=== PATIENT | male | born 1975 | race Caucasian/White ===

== ENCOUNTER 2024-07-12 10:57 | Emergency (ER) | payer OTHER, SELFPAY ==
[2024-07-12 11:05] VITALS: BP 155/108; PULSE 100; RESP 16; TEMP 36.9; O2SAT 100
--- NOTE | 2024-07-12 11:08 | ECG_ITS ---
Test Date: 2024-07-12 11:10:05 Measurements Intervals [place] Rate: 99 P: 9 [place]: 139 QRS: 29 QRSD: 95 T: 1 QT: 313 QTc: 403 Interpretive Statements SINUS RHYTHM WITH SINUS ARRHYTHMIA No previous ECG available for comparison Electronically Signed On 07-12-2024 15:25:56 CDT by Vandana Daniel M.D.
--- NOTE | 2024-07-12 11:32 | ED.ARRPALP ---
HPI - Arrhythmia/Palpitations General Chief Complaint: Arrhythmia/Palpitations Stated Complaint: palpitations, elevated HR, BP Time Seen by Provider: 07/12/24 11:04 Source: patient Mode of arrival: ambulatory Limitations: no limitations History of Present Illness HPI narrative: This is a 48-year-old male who presents to the ED for chief complaint of palpitations onset today. Patient reports he works from home and noticed that his heart beating really fast while sitting at his computer. He reports that he became a little more aware of his racing heartbeat and it seemed to get worse and worse for a few seconds. States that it started to go away but he called EMS to get checked out. States that he refuse transport after they did an EKG but decided he wanted to come to the ER for further evaluation. Endorses some associated lightheadedness. Denies associated chest pain, shortness of breath, nausea, vomiting, syncope, diaphoresis. Also concerned over elevated blood pressure. Denies vision change, numbness, weakness. No past medical history. States that he has been going through a lot of stress recently with a job change and a co-worker recently from heart problems Related Data Allergies Allergy/AdvReac Type Severity Reaction Status Date / Time Penicillins Allergy Unknown Skin Verified 07/12/24 10:59 Reaction Review of Systems Review of Systems: All systems as dictated in HPI Exam Narrative: GENERAL: Well-appearing, well-nourished, and in no acute distress. HEAD: Normocephalic, atraumatic. EYES: PERRLA and EOMI. ENT: Nares clear, no rhinorrhea or epistaxis. Mucous membranes moist. Oropharynx without tonsillar hypertrophy exudate or other lesions. NECK: Supple. No adenopathy or masses. CHEST: No respiratory distress. Clear to auscultation. No wheezes rales or rhonchi HEART: Regular rate and rhythm. No murmur heard. Normal peripheral pulses. ABDOMEN: Soft, nontender, nondistended, normal active bowel sounds. MSK: Normal range of motion. No edema. SKIN: Warm, dry, no rash. NEURO: Alert and oriented x4. No focal deficits. PSYCH: Normal mood and affect. Course Vital Signs Vital signs: Vital Signs Temperature 98.5 F 07/12/24 11:05 Pulse Rate 100 07/12/24 11:05 Respiratory Rate 16 07/12/24 11:05 Blood Pressure 155/108 H 07/12/24 11:05 Pulse Oximetry 100 07/12/24 11:05 Temperature 98.5 F 07/12/24 11:05 Pulse Rate 100 07/12/24 11:05 Respiratory Rate 16 07/12/24 11:05 Blood Pressure 155/108 H 07/12/24 11:05 Pulse Oximetry 100 07/12/24 11:05 MDM - Arrhythmia/Palpitations MDM Narrative Medical decision making narrative: This is a 48 yo male who presents to the ED for palpitations and elevated blood pressure. Vitals are normal. Blood pressure mildly elevated. Exam is benign overall. EKG shows sinus rhythm with sinus arrhythmia. Lab work unremarkable. Troponin normal Patient is undergoing a lot of stress at home and symptoms are felt most likely to be due to anxiety today. He is asymptomatic on multiple re-evaluations. Discussed need to follow-up with PCP on this issue. Patient will be discharged in stable condition. Supportive measures discussed and return precautions given. Patient is understanding and agreeable with plan for discharge with PCP follow-up. ECG Data EKG #1: ECG completion date: 07/12/24 ECG completion time: 11:10 Prior ECG tracings: not available for review Interpretation: Sinus rhythm with sinus arrhythmia Rate 99 Normal QRS Normal QTC No acute ischemia Discharge Plan Discharge Clinical Impression: Palpitations, Sinus arrhythmia Patient Disposition: Home, Self-Care Condition: Stable Instructions: Antibiotic Form Additional Instructions: Exam and workup today are reassuring overall. Please take hydroxyzine as needed. Follow-up with PCP If you have any new or worsening symptoms please return to the ER for further evaluation. Prescriptions: New hydroxyzine HCl 25 mg tablet 25 mg PO TID PRN (Reason: anxiety) Qty: 30 0RF Follow-up/Referrals: PHYSICIAN,[facility] [Non-Staff] - Petey Maradiaga MD [Physician] - Time of Disposition: 12:20
[2024-07-12 11:42] LABS: Basophils Absolute Auto 0.1 K/mm3 (0.0-0.1); Basophils Percent Auto 0.8 % (0.2-1.2); Eosinophils Absolute Auto 0.3 K/mm3 (0-0.3); Eosinophils Percent Auto 4.3 % (0-4.4); Hematocrit 48.6 % (42.0-52.0); Hemoglobin 16.6 g/dL (14.0-18.0); Immature Granulocyte Absolute 0.03 K/mm3 (0.00-0.031); Immature Granulocyte Percent A 0.4 % (0-0.5); Lymphocytes Percent Auto 34.9 % (18.3-44.2); Mean Corpuscular HGB Conc 34.2 g/dl (32-36); Mean Corpuscular Hemoglobin 30.1 pg (26-34); Monocytes Absolute Auto 0.6 K/mm3 (0.1-0.6); Monocytes Percent Auto 8.6 % (2.6-8.5); Neutrophils Absolute Auto 3.7 K/mm3 (1.3-6.7); Platelet Count Result 275 k/mm3 (150-375); Red Blood Count 5.52 M/mm3 (4.6-6.20); Red Cell Distribution Width 12.1 % (11.5-14.5); White Blood Count 7.2 K/mm3 (4.5-10.0)
[2024-07-12 11:52] LABS: Alanine Aminotransferase 19 U/L (6-50); Alkaline Phosphatase 58 U/L (38-126); Anion Gap 12 mmol/L (4-12); Aspartate Amino Transferase 25 U/L (17-59); Blood Urea Nitrogen 13 mg/dL (9-20); Carbon Dioxide 28 mmol/L (22-30); Chloride 101 mmol/L (98-107); Estimated CRCL calculation 106 ml/min; Estimated Glomerular Filt Rate > 60; Glucose 104 mg/dL (65-110); Potassium 3.9 mmol/L (3.4-5.0); Sodium 141 mmol/L (137-145)
[2024-07-12 12:00] VITALS: BP 141/94; PULSE 94; RESP 16; O2SAT 98
[2024-07-12 12:03] LABS: Troponin I < 0.012 ng/mL (0.000-0.034)
== END 2024-07-12 12:31 | disposition home or self-care (01) ==
PROVIDERS: Emergency Provider Physician Assistant
DX: R00.2 Palpitations (principal); I49.9 Cardiac arrhythmia, unspecified
CPT/HCPCS: 36415; 80053; 84484; 85025; 93005; 99284